=== PATIENT | male | born 1960 | race American Indian/Alaskan Native ===

== ENCOUNTER 2022-06-06 13:16 | Day surgery (SDC) | payer BC, MEDICARE ==
[2022-06-06 14:21] VITALS: BP 131/84; PULSE 83; RESP 16; TEMP 98
--- NOTE | 2022-06-06 14:48 | US ---
Ultrasound-guided paracentesis. DATE OF EXAM: 06/06/2022 CLINICAL HISTORY: ASCITES There is only a small amount of fluid with no sizable amount of fluid collection available for percut aneous drainage. The patient was stable throughout the procedure and remained stable upon discharge f [facility] Department of Radiology. IMPRESSION: Discontinued paracentesis due to insufficient fluid..
== END 2022-06-06 14:00 | disposition home or self-care (01) ==
LOC: RADPROMAIN 13:16
PROVIDERS: ATTEND Internal Medicine Gastroenterology
DX: R18.8 Other ascites (principal)
CPT/HCPCS: 76705